=== PATIENT | female | born 1945 | race Caucasian/White ===

== ENCOUNTER → 2019-05-15 | Outpatient (CLI) ==
[2019-05-15 14:19] LABS: ABSOLUTE RETIC # 40 10e9/L (24-90); RETICULOCYTE % 0.79 % (0.50-2.40)
[2019-05-15 14:40] LABS: BAND NEUTROPHILS 0 %; BASOPHILS % (MANUAL) 1 %; ELLIPT/OVALOCYTES SLIGHT; EOSINOPHILS % (MANUAL) 1 %; LYMPHOCYTES % (MANUAL) 14 %; MONOCYTES % (MANUAL) 11 %; NEUTROPHILS % (MANUAL) 73 %
== END ==
LOC: LABNPT 14:14
PROVIDERS: ATTEND Internal Medicine
DX: R18.8 Other ascites (principal)
CPT/HCPCS: 85007; 85045